=== PATIENT | female | born 1995 | race Two or more races ===

== ENCOUNTER 2024-05-08 11:15 | Emergency (ER) | payer OTHER ==
[~2024-05-08] VITALS: Ht 154.9 cm; Wt 70.8 kg
[2024-05-08 12:53] LABS: HEMATOCRIT 34.7 % (36.0-45.00); HEMOGLOBIN 11.8 g/dL (12.0-15.00); MEAN CELL VOLUME 84.4 fL (80.00-100.00); MEAN CORPUSCULAR HEMOGLOBIN 28.8 pg (27.00-32.0); MEAN CORPUSCULAR HGB CONC 34.1 g/dl (32.0-36.0); PLATELET COUNT 244 K/uL (150-450); RED BLOOD COUNT 4.11 M/uL (4.00-6.00); RED CELL DISTRIBUTION WIDTH 13.3 % (11.5-14.5)
== END 2024-05-08 15:30 | disposition home or self-care (01) ==
LOC: ER 11:18
PROVIDERS: Emergency Medicine
DX: O03.9 Complete or unspecified spontaneous abortion without complication (principal)

== ENCOUNTER 2024-12-18 08:58 | Emergency (ER) | payer OTHER ==
[~2024-12-18] VITALS: Ht 154.9 cm; Wt 70.8 kg
[2024-12-18] MEDS ORDERED: PRENATAL + DHA1 EAC1 PO (10:11)
[2024-12-18 12:33] LABS: BASO % 0.5 % (0.1-1.2); EOS # 0.13 (0.04-0.54); EOS % 1.0 % (0.7-7.0); LYMPH # 2.14 (1.18-3.74); LYMPH % 16.2 % (19.3-53.1); MEAN PLATELET VOLUME 10.30 fl (9.4-12.4); MONO # 0.80 (0.24-0.82); MONO % 6.0 % (4.7-12.5); NEUT # 10.06 (1.56-6.13); NEUT % 76.0 % (34.0-71.1); RED CELL DISTRIBUTION WIDTH 13.5 % (11.6-14.4)
[2024-12-18 12:51] LABS: INR 0.98
[2024-12-18 12:54] LABS: URINE APPEARANCE Clear; URINE BILIRRUBIN Negative (NEGATIVE); URINE BLOOD Negative; URINE COLOR Yellow; URINE GLUCOSE Negative (NEGATIVE); URINE KETONE Trace (NEGATIVE); URINE LEUKOCYTE Trace; URINE NITRATE Negative; URINE PROTEIN Negative (NEGATIVE); URINE UROBILINOGEN 1.0 E.U./dl
[2024-12-18 12:58] LABS: URINE BACTERIA 3100.8 uL (0.0-1933); URINE EPITHELIAL CELLS 78.7 uL (0.0-38.8); URINE RBC 4.1 uL (0.0-20.8); URINE WBC 13.5 uL (0.0-23.2)
[2024-12-18 13:09] LABS: BUN CREA RATIO 19.0 (7.0-25.0); CREATININE SERUM 0.52 mg/dL (0.55-1.02); GFR 137.54; GLUCOSE FASTING 97.0 mg/dL (65-100); OSMOLALITY SERUM 276.0 MOSM/KG (275-295)
[2024-12-18 13:15] LABS: HCG QUANTITATIVE 33678.0 mUI/mL (1-3)
[2024-12-18 13:54] LABS: URINE CAST 0.00 uL (0.0-1.40)
== END 2024-12-18 18:04 | disposition home or self-care (01) ==
LOC: ER 08:58
PROVIDERS: General Practice
DX: O20.8 Other hemorrhage in early pregnancy (principal); Z3A.08 8 weeks gestation of pregnancy; Z33.2 Encounter for elective termination of pregnancy

== ENCOUNTER 2024-12-25 06:48 | Emergency (ER) | payer OTHER ==
[~2024-12-25] VITALS: Ht 154.9 cm; Wt 70.8 kg
[~2024-12-25 06:48] MED LIST: PRENATAL + DHA1 EAC1 PO
[2024-12-25 07:25] VITALS: BP 113/79; O2SAT 97
[2024-12-25] MEDS ORDERED: DEXAMETHASONE SODIUM PHOSPHATE 4 MG/ML VIAL ONE (08:45)
[2024-12-25] MEDS ORDERED: KETOROLAC TROMETHAMINE 60 MG VIAL IM ONE ×2 (08:45)
[2024-12-25] MEDS ORDERED: ONDANSETRON HCL 2 MG/ML VIAL IM ONE (08:45)
[2024-12-25 09:22] LABS: BASO % 0.6 % (0.1-1.2); EOS # 0.19 (0.04-0.54); EOS % 1.5 % (0.7-7.0); LYMPH # 2.50 (1.18-3.74); LYMPH % 19.6 % (19.3-53.1); MEAN PLATELET VOLUME 9.90 fl (9.4-12.4); MONO # 0.69 (0.24-0.82); MONO % 5.4 % (4.7-12.5); NEUT # 9.27 (1.56-6.13); NEUT % 72.5 % (34.0-71.1); RED CELL DISTRIBUTION WIDTH 13.0 % (11.6-14.4)
[2024-12-25 09:41] LABS: INR 0.96
[2024-12-25 09:45] LABS: ALT/SGPT 15.0 U/L (12-78); AST/SGOT 8.0 U/L (15-37); BILIRUBIN TOTAL 0.27 mg/dL (0.3-1.2); BUN CREA RATIO 19.0 (7.0-25.0); CREATININE SERUM 0.62 mg/dL (0.55-1.02); GFR 112.27; GLOBULINA 4.5 G/DL (2.4-3.5); GLUCOSE FASTING 122.0 mg/dL (65-100); OSMOLALITY SERUM 277.0 MOSM/KG (275-295)
== END 2024-12-25 12:54 | disposition home or self-care (01) ==
LOC: ER 06:49
DX: O03.9 Complete or unspecified spontaneous abortion without complication (principal); G43.909 Migraine, unspecified, not intractable, without status migrainosus; Z3A.12 12 weeks gestation of pregnancy